=== PATIENT | female | born 1950 | race Caucasian/White ===

== ENCOUNTER → 2017-01-17 | Day surgery (SDC) | payer MEDICARE, OTHER ==
[~2017-01-17] MED LIST: ACCUNEB0.21 MG/ML IH; ALBUTEROL20 ml INH; ALEVE220 M1 PO; ALLEGRA; ALLEGRA ALLERG180 MG PO; ALLEGRA180 MG PO; ALPRAZOLAM PO; ASPIRIN; ASPIRIN EC81 M1 PO; ASPIRIN81 M1 PO; BIOTIN1 M1 PO; BYETTA10 MCG/0.0 INJ; CALCIUM 500 MG1 EACH; CALCIUM 5001 TAB PO; CENTRUM PO; CERTAGEN PO; CLARITIN10 MG PO; CLOPIDOGREL75 MG PO; CRESTOR PO; DEMADEX PO; DETROL LA PO; DIFLUCAN PO; EFFEXOR XR150 MG PO; FISH OIL 1,0001 CAP PO; FISH OIL 1,0001 EAC2 PO; FLEXERIL PO; FLEXERIL10 MG PO; FLONASE; FLONASE 0.05% N16 G1; FLONASE16 GM IH; GLUCOPHAGE500 MG PO; HYDROCODONE-APA1 T41 PO; IBUPROFEN400 MG PO; IMDUR; IMDUR PO; IMDUR-ER60 MG PO; IMDUR30 MG PO; INSULIN PUMP R1 EACH; JANUVIA PO; LANTUS100 U/M1 SUBQ; LANTUS100 U/ML SUBQ; LANTUS100 UNITS/; LEVEMIR SUBQ; LEVEMIR100 UNITS/ SUBQ; LEVOTHYROXINE175 MCG PO; LO-DOSE ASPIRIN81 M1 PO; LOPRESSOR; LOPRESSOR PO; LORATADINE PO; LORTAB 7.5-5001 TAB PO; LORTAB 7.51 TAB PO; METFORMIN; METFORMIN HCL1000 M1 PO; METOPROLOL TAR25 MG PO; METRONIDAZOLE PO; MICARDIS PO; MICARDIS20 MG PO; MOTRIN400 MG; MOTRIN400 MG PO; MUCINEX D ER T1 EACH PO; MUCINEX1200 MG/BO PO; MUCINEX22 ML PO; MULTI VITAMIN1 EACH PO; MULTI-DAY VITAM1 TAB PO; NASONEX17 GM; NEURONTIN300 MG PO; NEXIUM PO; NITROGLYCERIN0.4 MG SL; NITROGLYGERIN0.4 MG SL; NITROSTAT0.4 MG SL; NORCO 10-325 TA1 TAB PO; NOVOLOG100 U/M1; NOVOLOG100 U/ML SUBQ; NOVOLOG100 UNITS/ SUBQ; OXYGEN; OXYGEN INH; PANTOPRAZOLE SO40 MG PO; PATADAY2.5 ML OU; PHENERGAN25 MG PO; PLAVIX; PLAVIX PO; PRAVACHOL20 MG PO; PRAVACHOL80 MG; PRAVACHOL80 MG PO; PRAVASTATIN SOD40 MG PO; PREVACID; PRILOSEC PO; PROTONIX PO; QVAR7.3 G1 IH; QVAR7.3 G1 INH; REFRESH DRY EYE15 ML OP; REFRESH EYE DRO50 E1 OU; REFRESH EYE DRO50 EA OU; SALINE NOSE SPR45 M1 IH; SINGULAIR PO; SYMBICORT80 INH; SYNTHROID; SYNTHROID PO; SYNTHROID175 MCG PO; TOPROL XL PO; VICODIN 5/1 TAB 5/50 PO; VICODIN PO; VIT B 6; VITAMIN D50000 UNIT PO; VOLTAREN75 MG PO; VYTORIN 10/40 T1 TAB; XANAX0.5 M1 PO; XOPENEX HFA15 GM INH; XOPENEX HFA15 GM NEB; XOPENEX0.31 MG/3 IH; XOPENEX45 MCG/15; ZANAFLEX2 M2 PO; ZETIA PO; ZOLOFT; ZOLOFT PO; ZOLOFT100 MG PO; [UNRECOGNIZED DRUG - OTHER] INH
--- NOTE | ~2017-01-17 | OR ---
Unit #: [id number] #: [id number] Patient: WILLIAM FRANKS [id number] [address] [address] [id number] O MR#: [id number] NAME: WILLIAM FRANKS. ROOM: Date of Procedure: 01/17/2017 Admission Date: 01/17/2017 Surgeon: Jama Garcia M.D. : 1950 Attending Physician: Jama Garcia M.D. Primary Care Physician: Prosper Bal M.D. OPERATIVE REPORT PREOPERATIVE DIAGNOSES Back pain, radiculopathy, degenerative lumbar disk disease. POSTOPERATIVE DIAGNOSES Back pain, radiculopathy, degenerative lumbar disk disease. PROCEDURE PERFORMED Lumbar epidural steroid injection with intravenous sedation and fluoroscopic guidance for needle localization. HISTORY OF PRESENT ILLNESS The patient is a 66-year-old female with return of back and left greater than right lower extremity pain associated with nonsurgical degenerative disk disease. She was treated with epidural steroid injections every year or two. Last injection was actually in 03/2015. She had re-flare of the pain in her back and lower extremity, so plan is to repeat an epidural steroid injection. DESCRIPTION OF PROCEDURE The patient was placed in a seated position. Standard monitors were applied. 2 mg of Versed were given for sedation and anxiolysis, which were adequate. Vital signs remained stable. Sterile prep and drape then of the lumbar area was performed. The skin then at the L4-L5 level was localized with 1% lidocaine. An 18-gauge AccessDatatead needle was then advanced via loss of resistance technique and fluoroscopic guidance in toward the epidural space. After confirming proper positioning with fluoroscopy and radiographic contrast, 80 mg of Depo-Medrol and 4 mL of 0.125% bupivacaine were deposited. The patient tolerated the procedure otherwise well and was discharged to recovery room in stable condition. Dictated by... Jama Garcia M.D. LHP/modl TD: 01/17/2017 12:16 JOB #: [id number] Unit #: [id number] #: [id number] Patient: WILLIAM FRANKS OPERATIVE REPORT Page 1 of 1 X Jama Garcia MD X PROCEDURE OPERATIVE NOTE
== END | disposition home or self-care (01) ==
LOC: CCSC 09:02
DX: M51.16 Intervertebral disc disorders with radiculopathy, lumbar region (principal); M79.661 Pain in right lower leg; E11.9 Type 2 diabetes mellitus without complications; Z79.4 Long term (current) use of insulin; I25.10 Atherosclerotic heart disease of native coronary artery without angina pectoris; I10 Essential (primary) hypertension
CPT/HCPCS: J1040; J2250

== ENCOUNTER → 2017-01-24 | Day surgery (SDC) | payer MEDICARE, OTHER ==
--- NOTE | ~2017-01-24 | OR ---
Unit #: [id number] #: [id number] Patient: WILLIAM FRANKS [id number] [address] [address] [id number] O MR#: [id number] NAME: WILLIAM FRANKS. ROOM: Date of Procedure: 01/24/2017 Admission Date: 01/24/2017 Surgeon: Jama Garcia M.D. : 1950 Attending Physician: Jama Garcia M.D. Primary Care Physician: Prosper Bal M.D. OPERATIVE REPORT PREOPERATIVE DIAGNOSES Back pain, radiculopathy, degenerative lumbar disk disease. POSTOPERATIVE DIAGNOSES Back pain, radiculopathy, degenerative lumbar disk disease. PROCEDURE PERFORMED Lumbar epidural steroid injection with intravenous sedation and fluoroscopic guidance for needle localization. INDICATIONS FOR PROCEDURE The patient is a 66-year-old female with previously mentioned nonsurgical pathology. She has done well with p.r.n. epidural steroids. Last injections were done in 2014. She did well until recently. Generally, she requires certainly a third injection to maximize for improvement. She had an initial injection, which gave her about 35% reduction in the back and leg pains. We are going to proceed with a second injection based on her history, pathology, symptomatology, and response to treatment. DESCRIPTION OF PROCEDURE The patient was placed in a seated position. Standard monitors were applied. 2 mg of Versed were given for sedation and anxiolysis, which were adequate. Vital signs remained stable. Sterile prep and drape then of the lumbar area was performed. The skin at the L4-L5 level was localized with 1% lidocaine. An 18-gauge Bondsytead needle was then advanced via loss of resistance technique and fluoroscopic guidance in toward the epidural space. After confirming proper needle tip positioning with fluoroscopy and radiographic contrast, 80 mg of Depo-Medrol and 4 mL of 0.125% bupivacaine were deposited. The patient tolerated the procedure otherwise well and was discharged to recovery room in stable condition. Dictated by... Jama Garcia M.D. LHP/modl TD: 01/24/2017 10:32 JOB #: [id number] Unit #: [id number] #: [id number] Patient: WILLIAM FRANKS OPERATIVE REPORT Page 1 of 1 X Jama Garcia MD X PROCEDURE OPERATIVE NOTE
== END | disposition home or self-care (01) ==
LOC: CCSC 01-10 10:00
DX: M51.16 Intervertebral disc disorders with radiculopathy, lumbar region (principal); I25.10 Atherosclerotic heart disease of native coronary artery without angina pectoris; E11.9 Type 2 diabetes mellitus without complications; I10 Essential (primary) hypertension; M19.90 Unspecified osteoarthritis, unspecified site; E66.01 Morbid (severe) obesity due to excess calories; Z88.0 Allergy status to penicillin; Z88.2 Allergy status to sulfonamides; Z88.1 Allergy status to other antibiotic agents; Z79.02 Long term (current) use of antithrombotics/antiplatelets; Z79.4 Long term (current) use of insulin; Z79.82 Long term (current) use of aspirin; Z79.899 Other long term (current) drug therapy
CPT/HCPCS: J1040; J2250

== ENCOUNTER → 2017-02-07 | Day surgery (SDC) | payer MEDICARE, OTHER ==
--- NOTE | ~2017-02-07 | OR ---
Unit #: [id number] #: [id number] Patient: WILLIAM FRANKS [id number] [address] [place], [place] [address] [id number] O MR#: [id number] NAME: WILLIAM FRANKS ROOM: Date of Procedure: 02/07/2017 Admission Date: 02/07/2017 Surgeon: Jama Garcia M.D. : 1950 Attending Physician: Jama Garcia M.D. Primary Care Physician: Prosper Bal M.D. OPERATIVE REPORT JOB NOTE: CC: [facility] PREOPERATIVE DIAGNOSES Back pain, radiculopathy, degenerative lumbar disk disease. POSTOPERATIVE DIAGNOSES Back pain, radiculopathy, degenerative lumbar disk disease. PROCEDURE PERFORMED Lumbar epidural steroid injection with intravenous sedation and fluoroscopic guidance for needle localization. INDICATIONS FOR PROCEDURE The patient is a 66-year-old female with significant multilevel nonsurgical degenerative disk disease. She has been treated with epidural steroids every year or so, which has been quite helpful. She had 2 injections done over the last month, which get additively given her least 50% settling of her symptom complex. Based on a good response, though it has not as good as been in the last, so we are going to proceed with a final injection today. We will follow the patient back at the pain center. DESCRIPTION OF PROCEDURE The patient was placed in the seated position. Standard monitors were applied. 2 mg of Versed were given for sedation and anxiolysis, which were adequate. Vital signs remained stable. Sterile prep and drape then of the lumbar area was performed. The skin then at the L3-L4 level was localized with 1% lidocaine. An 18-gauge Introvision R&Dtead needle was then advanced via loss of resistance technique and fluoroscopic guidance in toward the epidural space. After confirming proper positioning with fluoroscopy and radiographic contrast, 80 mg Depo-Medrol and 4 mL of 0.125% bupivacaine were deposited. The patient tolerated the procedure well and was discharged to recovery room in stable condition. Dictated by... Andrés Duncan/zhang TD: 02/07/2017 12:23 JOB #: [id number] Unit #: [id number] #: [id number] Patient: WILLIAM FRANKS OPERATIVE REPORT Page 1 of 1 X Jama Garcia MD X PROCEDURE OPERATIVE NOTE
== END | disposition home or self-care (01) ==
LOC: CCSC 09:14
DX: M51.16 Intervertebral disc disorders with radiculopathy, lumbar region (principal); E11.9 Type 2 diabetes mellitus without complications; I25.10 Atherosclerotic heart disease of native coronary artery without angina pectoris; I10 Essential (primary) hypertension; E66.01 Morbid (severe) obesity due to excess calories; M19.90 Unspecified osteoarthritis, unspecified site; Z79.82 Long term (current) use of aspirin; Z79.84 Long term (current) use of oral hypoglycemic drugs; Z79.899 Other long term (current) drug therapy; Z88.0 Allergy status to penicillin; Z88.1 Allergy status to other antibiotic agents; Z88.2 Allergy status to sulfonamides; Z88.8 Allergy status to other drugs, medicaments and biological substances
CPT/HCPCS: J1040; J2250